=== PATIENT | male | born 1945 | race Caucasian/White ===

== ENCOUNTER → 2021-01-19 | Outpatient (CLI) | payer MEDICARE, OTHER ==
--- NOTE | 2021-01-19 13:21 | RAD ---
EXAMINATION: US DPLX VENOUS EXTREMITY LOWER LT (LOWER EXTREMITY VENOUS ULTRASOUND) CLINICAL HISTORY: Left lower extremity edema TECHNIQUE: Sonographic grayscale images obtained of the left lower extremity deep venous system with color flow Doppler, compression, and augmentation techniques as indicated. Images obtained and store d in a permanent archive. COMPARISON: None FINDINGS: No evidence of absent flow or incompressibility within the common femoral vein, femoral vein, or popl iteal vein. Visualized calf veins appear patent on limited evaluation. IMPRESSION: No evidence of left lower extremity DVT. Electronically signed by: Gomez Devine DO (01/19/2021 1:18 PM) RON
== END ==
LOC: US 11:16
PROVIDERS: ATTEND Nurse Practitioner Gerontology
DX: M79.89 Other specified soft tissue disorders (principal)
CPT/HCPCS: 93971